=== PATIENT | male | born 1990 | race Asian ===

== ENCOUNTER 2020-01-30 11:09 | Emergency (ER) | payer MEDICAID ==
[~2020-01-30] VITALS: Ht 188 cm; Wt 102.0 kg
[2020-01-30 11:34] VITALS: BP 134/93
== END 2020-01-30 12:15 | disposition home or self-care (01) ==
LOC: ED 12:04
DX: K08.89 Other specified disorders of teeth and supporting structures (principal); Z90.49 Acquired absence of other specified parts of digestive tract
CPT/HCPCS: 99283